=== PATIENT | male | born 2000 | race Hispanic/Latino ===

== ENCOUNTER → 2020-05-21 | Outpatient (CLI) | payer OTHER ==
--- NOTE | 2020-05-21 14:43 | REP ---
INDICATION: HEMOPTYSIS, ACUTE UPPER RESPIRATORY INFECTION COMPARISON: None. TECHNIQUE: PA/Lateral FINDINGS: The heart is normal in size. There is no hilar or mediastinal adenopathy. The lungs are clear. The pleural angles are unremarkable. Bones and soft tissues are unremarkable. IMPRESSION: No acute pulmonary disease. <Electronically signed by Brendan Guillermo > 05/21/20 [id number]
== END ==
LOC: M RAD 13:30
PROVIDERS: ATTEND Physician Assistant
DX: R04.2 Hemoptysis (principal); J06.9 Acute upper respiratory infection, unspecified; Z20.828 Contact with and (suspected) exposure to other viral communicable diseases